=== PATIENT | male | born 1995 | race Caucasian/White ===

== ENCOUNTER 2023-01-15 11:34 | Inpatient (IN) | payer SELFPAY ==
--- NOTE | ~2023-01-15 | MR_ITS ---
EXAMINATION: MR ABDOMEN WITHOUT CONTRAST MR CHOLANGIOPANCREATOGRAPHY CLINICAL INFORMATION: Abnormally elevated liver enzymes, status post laparoscopic cholecystectomy COMPARISON: Ultrasound examination of abdomen on 01/15/2023 EXAMINATION: MRI of abdomen. MR cholangiopancreatography TECHNIQUE: Examination was performed in a high field strength MRI scanner. Multiplanar multisequence MR imaging of the abdomen was performed without IV contrast enhancement. MR cholangiopancreatography was performed with heavily T2 weighted sequences. 3-dimensional reconstruction of image data was performed. This was performed under concurrent direct supervision and monitoring by radiologist. Maximum intensity projection images were constructed. FINDINGS: MR CHOLANGIOPANCREATOGRAPHY: Gallbladder is surgically absent. Bilateral intra hepatic bile ducts, common hepatic duct and common bile duct are normal in size without filling defects. Pancreatic duct is normal in size. LIVER: The liver shows no focal lesion. The calculated hepatic fat percentage is 2.7%, compatible with normal. PANCREAS: No focal pancreatic lesion with abnormal signal can be seen. SPLEEN: Spleen is mildly enlarged, measuring 14.7 cm in AP length, without focal lesion. ADRENAL: Bilateral adrenal glands are normal in shape and size. KIDNEYS: Bilateral kidneys are normal in size without focal lesion. No abnormal fluid collection could be seen in the abdomen including the gallbladder fossa. MR/MR MRCP IMPRESSION: 1. Status post cholecystectomy. No evidence of choledocholithiasis. No abnormal fluid collection in the gallbladder fossa. 2. Mild splenomegaly.
--- NOTE | ~2023-01-15 | US_ITS ---
EXAMINATION: US ABDOMEN LIMITED CLINICAL INFORMATION: Right upper quadrant pain. COMPARISON: None available. TECHNIQUE: Real-time imaging of the right upper quadrant abdominal viscera. FINDINGS: PANCREAS: Tail obscured. LIVER: The liver is normal in size. The liver contour is normal. There is diffuse increased liver parenchymal echogenicity, consistent with hepatic steatosis. No focal hepatic lesion. There is no intrahepatic biliary duct dilatation seen. GALLBLADDER: The gallbladder is physiologically distended with gallstones and sludge. The gallbladder wall measures up to 4 mm. Positive sonographic Talamantes sign. COMMON BILE DUCT: Measures up to 0.6 cm in diameter. RIGHT KIDNEY: No hydronephrosis. No renal calculi or focal parenchymal lesions. The kidney measures 10.0 cm in maximum dimension. FREE FLUID: None. US/US abdomen limited IMPRESSION: Cholelithiasis with gallbladder wall thickening and positive sonographic Talamantes's sign. This likely represents acute cholecystitis. Advise clinical correlation and surgical consultation.
[2023-01-15 11:40] VITALS: BP 144/94; PULSE 72; RESP 18; TEMP 36.5; O2SAT 99; BMI 27.1
--- NOTE | 2023-01-15 11:45 | ED.ABDPAIN ---
HPI - Abdominal Pain General Chief Complaint: Abdominal Pain Stated Complaint: Abd pain, insomnia Time Seen by Provider: 01/15/23 14:09 Source: patient Mode of arrival: ambulatory Limitations: no limitations History of Present Illness HPI narrative: 27-year-old male with no significant past medical history presents emergency department for evaluation of 4-5 days of right upper quadrant pain. Patient states the pain is been constant, pain does radiate to his back. He states the pain is currently severe and is 10/10. He has had associated nausea and vomiting. He states he last ate vegetable soup last night but has had no appetite today. Related Data Allergies Allergy/AdvReac Type Severity Reaction Status Date / Time No Known Allergies Allergy Verified 01/15/23 11:40 Review of Systems Review of Systems Yes all other systems are reviewed and are negative [facility]LY [facility] Social History Social History Smoked in Last 30 Days: Yes Use of substances other than those prescribed or required for medical reasons: No Advance Directives: No Advance Directives Information Provided: No Physical Exam ED Vital Signs: Vital Signs - 24 hr 01/15/23 11:40 01/15/23 14:24 Temperature 97.7 F 98.3 F Pulse Rate 72 60 Respiratory Rate 18 18 Blood Pressure 144/94 H 150/96 H Pulse Oximetry 99 100 Oxygen Delivery Method Room Air Room Air BMI result Body Mass Index 27.1 Vital signs were normal except for an elevated blood pressure of 140 or 94 Exam: General: Awake, alert appears to be in moderate distress secondary to his abdominal pain Head: Normocephalic, atraumatic EENT: PERRL, Lids normal, sclera normal, conjunctiva normal, nose normal , ears normal, throat without erythema or exudates Neck: Supple, no adenopathy Lung: breath sounds symmetric, no wheezing, rales or rhonchi Chest: symmetric movement, nontender Heart: regular rate and rhythm, normal S1, S2 no murmurs or rubs Abdomen: Moderate to severe right upper quadrant tenderness with positive Talamantes sign,moderate epigastric tenderness, normoactive bowel sounds, no distension Back: no vertebral tenderness, no CVAT Neuro: Awake, alert, oriented, normal speech, moves all extremities symmetrically Course Course Course Narrative: This is an RME: Additional HPI, ROS, PE not included below will be deferred to primary provider. This is a 27-year-old male presenting to the emergency department with right upper quadrant pain x4 days. Pain has been keeping him awake at night. States that he has been vomiting, vomited 5 times last night. He is unable to keep anything down. Slight Scleral icterus on examination, with positive right upper quadrant pain. No fevers or chills. Vital signs stable. Plan: Labs, ultrasound right upper quadrant further ER evaluation needed. Medical Decision Making Medical Decision Making [facility] Narrative: 27-year-old male with no significant past medical history presents emergency department for evaluation of 4-5 days of right upper quadrant pain, with pain radiating to his back associated with nausea, vomiting or loss of appetite. Vital signs were unremarkable. Exam did reveal moderate to severe right upper quadrant tenderness with positive Talamantes sign. Following evaluation was ordered: CBC, BMP, lipase, abdominal ultrasound right upper quadrant Patient was treated with morphine 4 mg IV, lactated Ringer's x1 L and Zofran 4 mg IV 15:00 My interpretation patient's laboratory evaluation as follows: Elevated white blood count 93255. Elevated AST, ALT and alk-phos 42, 84 and 136 year. Elevated total bilirubin 2.0. Direct bilirubin was 0.7 Patient's right upper quadrant ultrasound revealed cholelithiasis with gallbladder wall thickening and positive sonographic Talamantes's sign. Patient's presentation, physical exam, laboratory evaluation ultrasound findings are consistent with acute cholecystitis I did order Zosyn 4.5 g IV I will discuss disposition with the covering surgeon 15:44 Patient was seen in the emergency department by Dr. Rea and he will admit the patient to his service. Patient was given a 2nd dose of morphine 4 mg IV. Differential Diagnosis Differential Diagnoses: The differential diagnosis associated with the presentation includes Differential diagnosis includes was not limited to cholecystitis, pancreatitis, appendicitis, gastritis, Admission/Observation Consideration of admission/observation: Escalation of care including admission/observation considered Consult Healthcare Provider Management of the patient was discussed with: Flight Agent On-call surgeon, Dr. Rea Lab Data [facility] Lab Attestation statement: I reviewed the patient's lab results. Please see [facility] above for discussion of labs 01/15/23 13:24 01/15/23 13:24 Labs: Lab Results 01/15/23 Range/Units 13:24 WBC 13.2 H (4.8-10.8) X10*3/uL RBC 5.70 (4.60-5.80) X10*6/uL Hgb 16.4 (14.0-18.0) g/dl Hct 47.4 (42.0-52.0) % MCV 83.2 (80.0-98.0) fL MCH 28.8 (27.0-33.0) pg MCHC 34.6 (31.0-36.0) g/dl RDW 12.3 (11.0-16.0) % Plt Count 310 (160-400) X10*3/uL MPV 9.3 L (9.4-12.4) fL Immature Gran % (Auto) 0.5 H (0.0-0.4) % Neut % (Auto) 76.7 H (45-73) % Lymph % (Auto) 15.6 L (20-40) % [place] % (Auto) 6.3 (2-11) % Eos % (Auto) 0.5 (0-4) % Baso % (Auto) 0.4 (0-2) % Lymph # (Auto) 2.1 (1.2-4.9) X10*3/uL [place] # (Auto) 0.8 (0.1-1.2) X10*3/uL Eos # (Auto) 0.1 (0.0-0.4) X10*3/uL Baso # (Auto) 0.1 (0.0-0.2) X10*3/uL Abs Immat Gran (auto) 0.06 H (0.00-0.03) X10*3/uL Absolute Neuts (auto) 10.2 H (2.0-8.3) x10*3/uL Absolute Nucleated RBC 0.000 (0.0-0.012) X10*3/uL Nucleated RBC % (auto) 0.0 (0.0-0.2) /100WBC Sodium 140 (135-145) mmol/L Potassium 4.3 (3.3-5.1) mmol/L Chloride 101 (96-108) mmol/L Carbon Dioxide 27 (22-29) mmol/L Anion Gap 16 (12-20) BUN 10 (9-16) mg/dL Creatinine 0.88 (0.5-1.4) mg/dL Estim Creat Clear Calc 135.9 Estimated GFR > 60 Random Glucose 110 (60-115) mg/dL Calcium 10.2 (8.4-10.2) mg/dL Total Bilirubin 2.0 H (0.0-1.0) mg/dL Direct Bilirubin 0.7 H (0.0-0.5) mg/dL AST 42 H (5-37) U/L ALT 84 H (0-40) U/L Alkaline Phosphatase 136 H (39-117) U/L Total Protein 8.6 H (6.5-8.0) g/dL Albumin 4.6 (3.5-5.0) g/dL Lipase 13 (8-78) U/L Radiology Impression Discussion of test interpretation with radiology: I have reviewed the radiologist's reading. Radiologist Impression: CLINICAL INFORMATION: Right upper quadrant pain. COMPARISON: None available. TECHNIQUE: Real-time imaging of the right upper quadrant abdominal viscera. FINDINGS: PANCREAS: Tail obscured. LIVER: The liver is normal in size. The liver contour is normal. There is diffuse increased liver parenchymal echogenicity, consistent with hepatic steatosis. No focal hepatic lesion. There is no intrahepatic biliary duct dilatation seen. GALLBLADDER: The gallbladder is physiologically distended with gallstones and sludge. The gallbladder wall measures up to 4 mm. Positive sonographic Talamantes sign. COMMON BILE DUCT: Measures up to 0.6 cm in diameter. RIGHT KIDNEY: No hydronephrosis. No renal calculi or focal parenchymal lesions. The kidney measures 10.0 cm in maximum dimension. FREE FLUID: None. US/US abdomen limited IMPRESSION: Cholelithiasis with gallbladder wall thickening and positive sonographic Talamantes's sign. This likely represents acute cholecystitis. Advise clinical correlation and surgical consultation. Dictated By: Oswaldo Wall MD Medications Administered Generic Name Dose Route Start Last Admin Trade Name Freq PRN Reason Stop Dose Admin Lactated Ringer's 1,000 mls @ 999 mls/hr 01/15/23 15:00 01/15/23 15:27 Lr IV 01/15/23 16:00 999 mls/hr .Q1H1M KIMANI Administration Discontinued Medications Generic Name Dose Route Start Last Admin Trade Name Freq PRN Reason Stop Dose Admin Piperacillin Sod/Tazobactam 100 mls @ 200 mls/hr 01/15/23 14:54 01/15/23 15:32 Sod 4.5 gm/ Sodium Chloride IV 01/15/23 15:23 200 mls/hr ONCE ONE Administration Morphine Sulfate 4 mg 01/15/23 14:54 01/15/23 15:21 Morphine Sulfate 4 Mg/Ml Cartridge IVPUSH 01/15/23 14:55 4 mg ONCE STA Administration Protocol Ondansetron HCl 4 mg 01/15/23 14:54 01/15/23 15:20 Ondansetron Hcl 4 Mg/2 Ml Vial IVPUSH 01/15/23 14:55 4 mg ONCE ONE Administration
[2023-01-15 13:29] LABS: MANUAL DIFF FLAG NO
[2023-01-15 13:34] LABS: Basophils Absolute Auto 0.1 X10*3/uL (0.0-0.2); Basophils Percent Auto 0.4 % (0-2); Eosinophils Absolute Auto 0.1 X10*3/uL (0.0-0.4); Eosinophils Percent Auto 0.5 % (0-4); Hematocrit 47.4 % (42.0-52.0); Hemoglobin 16.4 g/dl (14.0-18.0); Imm Gran Abs Auto 0.06 X10*3/uL (0.00-0.03); Imm Gran Pct Auto 0.5 % (0.0-0.4); Lymphocytes Absolute Auto 2.1 X10*3/uL (1.2-4.9); Lymphocytes Percent Auto 15.6 % (20-40); Mean Corpuscular HGB Conc 34.6 g/dl (31.0-36.0); Mean Corpuscular Hemoglobin 28.8 pg (27.0-33.0); Mean Corpuscular Volume 83.2 fL (80.0-98.0); Mean Platelet Volume 9.3 fL (9.4-12.4); Monocytes Absolute Auto 0.8 X10*3/uL (0.1-1.2); Monocytes Percent Auto 6.3 % (2-11); Neutrophils Absolute Auto 10.2 x10*3/uL (2.0-8.3); Neutrophils Percent Auto 76.7 % (45-73); Platelet Count 310 X10*3/uL (160-400); Red Cell Distribution Width 12.3 % (11.0-16.0); White Blood Count 13.2 X10*3/uL (4.8-10.8)
[2023-01-15 13:45] LABS: Alanine Aminotransferase 84 U/L (0-40); Albumin Level 4.6 g/dL (3.5-5.0); Alkaline Phosphatase 136 U/L (39-117); Anion Gap 16 (12-20); Aspartate Amino Transferase 42 U/L (5-37); Bilirubin Direct 0.7 mg/dL (0.0-0.5); Blood Urea Nitrogen 10 mg/dL (9-16); Calcium 10.2 mg/dL (8.4-10.2); Carbon Dioxide 27 mmol/L (22-29); Chloride 101 mmol/L (96-108); Creatinine Clr Calc Pharmacy 135.9; Estimated Glomerular Filt Rate > 60; Glucose Random 110 mg/dL (60-115); Lipase 13 U/L (8-78); Potassium 4.3 mmol/L (3.3-5.1); Sodium 140 mmol/L (135-145); Total Protein 8.6 g/dL (6.5-8.0)
[2023-01-15 14:24] VITALS: BP 150/96; PULSE 60; RESP 18; TEMP 36.8; O2SAT 100
--- NOTE | 2023-01-15 14:33 | PC.NURSE ---
pt aox4, ambulatory. reporting 10/10 RUQ pain radiating to flank and back that has been increasing for 4-5 days. awaiting ED provider and additional orders for labs
[2023-01-15] MEDS: ondansetron HCL 4 MG/2 ML VIAL IVPUSH (15:20)
[2023-01-15] MEDS: Morphine Sulfate 4 MG/ML CARTRIDGE IVPUSH ×2 (15:21→15:47)
[2023-01-15] MEDS: Lactated Ringers 1,000 ML 999 ML IV (15:27)
[2023-01-15] MEDS: Piperacillin Sodium/Tazobactam 4.5 GM in 0.9 % Sodium Chloride 100 ML IV (15:32)
--- NOTE | 2023-01-15 15:32 | PC.NURSE ---
medicated per mar, morphine and zofran given. LR infusing. Per , cultures not needed before abx infusion.
--- NOTE | 2023-01-15 15:58 | PM.HPGS ---
History of Present Illness History of Present Illness Date of Service: 01/15/23 Chief complaint: Abd pain, insomnia Narrative: Kevin Gonzalez is a 27 year old male presents with a 4-5 day history of progressively worsening right upper quadrant pain radiating around to his back. Because of progression of symptoms, he presents emergency department for the evaluation. Workup including sonogram and exam are consistent with acute cholecystitis. Chart was reviewed patient evaluated. White blood cell count 13 moderate elevation of LFTs PMFSH Social History Social History Smoked in Last 30 Days: Yes Use of substances other than those prescribed or required for medical reasons: No Advance Directives: No Advance Directives Information Provided: No Meds Allergies Allergy/AdvReac Type Severity Reaction Status Date / Time No Known Allergies Allergy Verified 01/15/23 11:40 Active Medications: Current Medications Acetaminophen (Acetaminophen 325 Mg Tablet) 650 mg PO Q6H PRN PRN Reason: Pain, Mild (Pain Scale 1-3) Al Hydroxide/Mg Hydroxide (Magnesium Hydrox/Alum Hydrox 30 Ml Oral.Susp) 30 ml PO Q4H PRN PRN Reason: Heartburn/Nausea Hydromorphone HCl (Hydromorphone Hcl 1 Mg/Ml Syringe) 0.5 mg IVPUSH Q4H PRN; Protocol PRN Reason: Pain, Severe (Pain Scale 7-10) Lactated Ringer's (Lr) 1,000 mls @ 999 mls/hr IV .Q1H1M KIMANI Stop: 01/15/23 16:00 Last Admin: 01/15/23 15:27 Dose: 999 mls/hr Piperacillin Sod/Tazobactam (Sod 3.375 gm/ Sodium Chloride) 50 mls @ 100 mls/hr IV Q8H [facility] Magnesium Hydroxide (Milk Of Magnesia 30 Ml Oral.Susp) 30 ml PO DAILY PRN PRN Reason: Constipation Ondansetron HCl (Ondansetron Hcl 4 Mg/2 Ml Vial) 4 mg IVPUSH Q8H PRN PRN Reason: Nausea and Vomiting Sodium Chloride (0.9 % Sodium Chloride Flush 3 Ml Syringe) 3 ml IVFLUSH QSHIFT [facility] Temazepam (Temazepam 15 Mg Capsule) 15 mg PO BEDTIME PRN PRN Reason: Insomnia Physical Exam Vital Signs: Vital Signs: Last Vital Signs Temp 98.3 F 01/15/23 14:24 Pulse 60 01/15/23 14:24 Resp 18 12/07/23 14:24 BP 150/96 H 01/15/23 14:24 Pulse Ox 100 01/15/23 14:24 O2 Del Method Room Air 01/15/23 14:24 BMI result Body Mass Index 27.1 Eyes: Other: Anicteric Chest: Other: Chest breath sounds bilaterally, HS 1 in 2 GI: Other: Abdomen moderately corpulent, marked right upper quadrant tenderness and positive Talamantes sign Results Results Labs: Short CBC 01/15/23 Range/Units 13:24 WBC 13.2 H (4.8-10.8) X10*3/uL Hgb 16.4 (14.0-18.0) g/dl Hct 47.4 (42.0-52.0) % Plt Count 310 (160-400) X10*3/uL BMP 01/15/23 13:24 Sodium 140 Potassium 4.3 Chloride 101 Carbon Dioxide 27 BUN 10 Creatinine 0.88 Calcium 10.2 Liver Function 01/15/23 Range/Units 13:24 Total Bilirubin 2.0 H (0.0-1.0) mg/dL Direct Bilirubin 0.7 H (0.0-0.5) mg/dL AST 42 H (5-37) U/L ALT 84 H (0-40) U/L Alkaline Phosphatase 136 H (39-117) U/L Albumin 4.6 (3.5-5.0) g/dL Assessment and Plan (1) Acute cholecystitis: Status: Acute Plan Risks, benefits, alternatives of laparoscopic possible open cholecystectomy possible cholangiogram were reviewed with the patient and his significant other was also present which included but not limited to bleeding, infection, recurrence of symptoms, numbness, pain, scarring, bowel or bile duct injury or leak and the patient wishes to proceed. All questions were answered. Patient will may added to the OR ?add on schedule For either late this evening or tomorrow. Quality Stroke Does the patient have a stroke diagnosis?: No VTE Prior VTE?: No VTE Risk Level:: Surgical - low VTE Device Contraindication: Treatment Not Indicated VTE Drug Contraindication: Treatment Not Indicated Procedures Date of Service Date of Service: 01/15/23
--- NOTE | 2023-01-15 16:14 | PHA.MEDREC ---
Pharmacy Consult ? Medication Reconciliation Pharmacy has completed the medication reconciliation. Patient reports taking romansh medications -Parol for pain and Lansor for his stomach. Parol is acetaminophen and lansor is lansopraozle. Florecita Hardin, PharmD
[2023-01-15] MEDS: 0.9 % Sodium Chloride Flush 3 ML SYRINGE IVFLUSH (17:05)
[2023-01-15] MEDS: HYDROmorphone HCl 1 MG/ML SYRINGE IVPUSH (17:05)
[2023-01-15 17:09] VITALS: BP 154/94; PULSE 71; RESP 16; O2SAT 97
[2023-01-15 18:02] VITALS: BP 169/96; PULSE 71; RESP 16; TEMP 36.7; O2SAT 96
[2023-01-15 18:19] VITALS: BMI 30.3
[2023-01-15] MEDS: Acetaminophen 325 MG TABLET 650 MG PO (19:04)
[2023-01-15] MEDS: Lactated Ringers 1,000 ML 100 ML IVCONT (19:05)
[2023-01-15 19:12] VITALS: BP 163/88; PULSE 76; RESP 18; TEMP 37; O2SAT 97
[2023-01-15] MEDS: HYDROmorphone HCl 1 MG/ML SYRINGE 0.5 MG IVPUSH (21:30)
[2023-01-15] MEDS: Piperacillin Sodium/Tazobactam 3.375 GM in 0.9 % Sodium Chloride 50 ML IV (21:32)
[2023-01-16] VITALS (14 sets, daily range): BP systolic 129–155; BP diastolic 63–100; PULSE 86–124; RESP 15–20; TEMP 36–37.4; O2SAT 93–96
[2023-01-16] MEDS: 0.9 % Sodium Chloride Flush 3 ML SYRINGE IVFLUSH ×3 (00:31→17:18)
[2023-01-16] MEDS: Morphine Sulfate 4 MG/ML CARTRIDGE IVPUSH ×4 (01:16→23:58)
--- NOTE | 2023-01-16 01:22 | PC.NURSE ---
0040- patient stating to have 8/10 abdominal pain, sharp and achy, however, Dilaudid not due yet. while speaking with patient he verbalized that the Morphine he received in the ED seemed to work better for him. Dr. Rea alerted via tiger text and message given with approval for new order of morphine sulf, 4mg ivp Q 4 hours prn severe pain. order entered and patient administered dose at 0120, will cont to monitor effect and pain management.
[2023-01-16] MEDS: Piperacillin Sodium/Tazobactam 3.375 GM in 0.9 % Sodium Chloride 50 ML IV ×4 (04:17→21:16)
[2023-01-16] MEDS: Lactated Ringers 1,000 ML 100 ML IVCONT ×2 (04:49→21:15)
--- NOTE | 2023-01-16 09:45 | MHC.CM.PN ---
CM met with patient at bedside. From home with partner, Kervin, and independent at baseline. No services or medical equipment. Patient does not have a PCP or insurance at this time, but Kervin is working on applying for [employer] today. CM provided education re: HCP, patient does not wish to complete at this time. DCP: home self care, private transport. CM will follow.
[2023-01-16] MEDS: HYDROmorphone HCl 1 MG/ML SYRINGE 0.5 MG IVPUSH (11:04)
[2023-01-16] MEDS: Lactated Ringers 1,000 ML 50 ML IVCONT (12:50)
--- NOTE | 2023-01-16 13:48 | P.CONAN_ITS ---
HPI - Anesthesia Eval Consult details Narrative: 27 yo M admitted with acute cholecystitis [facility] Active Problems Active Problems: All Active Problems (Updated 01/16/23 @ 12:46 by Meg Juarez RN) Acute cholecystitis (Acute) Past Medical History Medical History (Updated 01/16/23 @ 12:46 by Meg Juarez RN) No pertinent past medical history Family History Family history of problems with anesthesia: No Surgical History Surgical History (Updated 01/16/23 @ 12:46 by Meg Juarez RN) No pertinent past surgical history History of Problems with Anesthesia: No Social History Social History Household Members: Significant Other Housing: House Do you presently have visiting nurse or other home services: No Patient Tobacco Use Status: Current everyday Tobacco user Tobacco use type: Cigarette Cigarette Packs Per Day: 1 Cigarettes Per Day: 20.0 Smoked in Last 30 Days: Yes Patient Interested in Nicotine Replacement: No Patient Given Instructions on How to Stop Smoking: No Second Hand Smoke Exposure: No Use of substances other than those prescribed or required for medical reasons: No Currently Displaying Signs/Symptoms of Drug Intoxication Withdrawal: No Any prior treatment program specific to substance use: No Have you been hit, kicked, punched, or otherwise hurt by someone within the past year? If so, by whom?: No Do you feel safe in your current relationship?: Yes Is there a partner from a previous relationship who is making you feel unsafe now?: No Are you made to feel afraid or neglected: No Are you DNR?: No Advance Directives: No Advance Directives Information Provided: No Advance Directives on File: No Do you have thoughts of harming others: None Do you have a plan to hurt others: No Plan Recently lost weight without trying: No Eating poorly because of decreased appetite: No Nutrition Risks: No Nutritional Risk Poor oral hygiene: No service: No Meds Allergies Allergy/AdvReac Type Severity Reaction Status Date / Time No Known Allergies Allergy Verified 01/15/23 11:40 Active Medications: Current Medications Acetaminophen (Acetaminophen 325 Mg Tablet) 650 mg PO Q6H PRN PRN Reason: Pain, Mild (Pain Scale 1-3) Last Admin: 01/15/23 19:04 Dose: 650 mg Al Hydroxide/Mg Hydroxide (Magnesium Hydrox/Alum Hydrox 30 Ml Oral.Susp) 30 ml PO Q4H PRN PRN Reason: Heartburn/Nausea Fentanyl (Fentanyl Citrate/Pf 100 Mcg/2 Ml Vial) 50 mcg IVPUSH Q5M PRN; Protocol PRN Reason: Pain, Severe (Pain Scale 7-10) Hydromorphone HCl (Hydromorphone Hcl 1 Mg/Ml Syringe) 0.5 mg IVPUSH Q4H PRN; Protocol PRN Reason: Pain, Severe (Pain Scale 7-10) Last Admin: 01/16/23 11:04 Dose: 0.5 mg Hydromorphone HCl (Hydromorphone Hcl 0.5 Mg/0.5 Ml Syringe) 0.5 mg IVPUSH Q5M PRN; Protocol PRN Reason: Pain, Severe (Pain Scale 7-10) Piperacillin Sod/Tazobactam (Sod 3.375 gm/ Sodium Chloride) 50 mls @ 100 mls/hr IV Q6H [facility] Last Infusion: 01/16/23 10:15 Dose: Infused Lactated Ringer's (Lr) 1,000 mls @ 100 mls/hr IVCONT .Q10H [facility] Last Infusion: 01/16/23 12:54 Dose: 0 mls/hr Lactated Ringer's (Lr) 1,000 mls @ 50 mls/hr IVCONT .Q20H [facility] Last Admin: 01/16/23 12:50 Dose: 50 mls/hr Promethazine HCl 12.5 mg/ (Sodium Chloride) 50.5 mls @ 202 mls/hr IV ONCE PRN PRN Reason: Nausea and Vomiting Magnesium Hydroxide (Milk Of Magnesia 30 Ml Oral.Susp) 30 ml PO DAILY PRN PRN Reason: Constipation Morphine Sulfate (Morphine Sulfate 4 Mg/Ml Cartridge) 4 mg IVPUSH Q4H PRN; Protocol PRN Reason: Pain, Severe (Pain Scale 7-10) Last Admin: 01/16/23 11:59 Dose: 4 mg Ondansetron HCl (Ondansetron Hcl 4 Mg/2 Ml Vial) 4 mg IVPUSH Q8H PRN PRN Reason: Nausea and Vomiting Oxycodone HCl (Oxycodone Hcl Immed Release 5 Mg Tablet) 10 mg PO ONCE PRN PRN Reason: Pain, Severe (Pain Scale 7-10) Sodium Chloride (0.9 % Sodium Chloride Flush 3 Ml Syringe) 3 ml IVFLUSH QSHIFT [facility] Last Admin: 01/16/23 07:47 Dose: 3 ml Temazepam (Temazepam 15 Mg Capsule) 15 mg PO BEDTIME PRN PRN Reason: Insomnia Home Medications Medication Instructions Recorded Confirmed Last Taken Type acetaminophen 500 mg tablet 500 mg PO Q6H PRN Pain (Scale 01/15/23 01/15/23 Unknown History Score 1-3) lansoprazole 30 mg capsule,delayed 30 mg PO DAILY 01/15/23 01/15/23 Unknown History release Exam Exam Date and Time: January 16, 2023 134 Height,Weight and Vital Signs: Height 6 ft Weight 101.2 kg Last Vital Signs Temp 99.3 F 01/16/23 12:39 Pulse 95 01/16/23 12:39 Resp 15 01/16/23 12:39 BP 147/91 H 01/16/23 12:39 Pulse Ox 96 01/16/23 12:39 O2 Del Method Room Air 01/16/23 12:39 Pertinent Lab Results Pertinent Lab Results: Laboratory Tests 01/15/23 13:24 WBC 13.2 H RBC 5.70 Hgb 16.4 Hct 47.4 MCV 83.2 MCH 28.8 MCHC 34.6 RDW 12.3 Plt Count 310 MPV 9.3 L Immature Gran % (Auto) 0.5 H Neut % (Auto) 76.7 H Lymph % (Auto) 15.6 L [place] % (Auto) 6.3 Eos % (Auto) 0.5 Baso % (Auto) 0.4 Lymph # (Auto) 2.1 [place] # (Auto) 0.8 Eos # (Auto) 0.1 Baso # (Auto) 0.1 Abs Immat Gran (auto) 0.06 H Absolute Neuts (auto) 10.2 H Absolute Nucleated RBC 0.000 Nucleated RBC % (auto) 0.0 Sodium 140 Potassium 4.3 Chloride 101 Carbon Dioxide 27 Anion Gap 16 BUN 10 Creatinine 0.88 Estim Creat Clear Calc 135.9 Estimated GFR > 60 Random Glucose 110 Calcium 10.2 Total Bilirubin 2.0 H Direct Bilirubin 0.7 H AST 42 H ALT 84 H Alkaline Phosphatase 136 H Total Protein 8.6 H Albumin 4.6 Lipase 13 Airway Mallampati Class: II TM Dist: <=3cm Neck ROM: Full Loose/Missing/Broken Teeth: No Heart: S1S2 Lungs: CTAB Assessment and Plan Assessment Anesthesia Assessment: Anesthesia Plan Discussed and Chart Reviewed Final Anesthetic Review Family History of Problems with Anesthesia: No History of Problems with Anesthesia: No NPO: Yes ASA Class: II Final Preanesthetic Review: No Changes in Pt Med Stat, Meds/Allgs Chart Reviewed, Consent Obtained/Reviewed and Anes Risks/Benef Reviewed Patient Risk: Low Procedure Risk: Low Anesthetic Plan Anesthetic Plan: MAC: and Agree w/ Assess. and Plan Disposition: Standard PACU
--- NOTE | 2023-01-16 15:38 | P.OP_ITS ---
Operative Note Operative Note Date of Service: 01/16/23 Narrative: Preoperative diagnosis: [] Acute cholecystitis Postop diagnosis: [] Acute phlegmonous cholecystitis Procedure [] laparoscopic cholecystectomy Surgeon: [] Álvaro [employer] Supervisor: [] Maria Alejandra Type of Anesthesia: [] General Indication for surgery: [] Acute cholecystitis intraoperative findings demonstrated thickened phlegmonous inflamed appendix with dense omental adhesions to it. Moderately corpulent abdomen. Very intrahepatic gallbladder. Findings: [] Patient was taken to the operating room, placed on the operative table in supine position, after adequate level of general anesthesia was induced, the patient's abdomen was prepped and draped in usual sterile fashion. Using a supraumbilical curvilinear incision, Shore technique was used to insufflate the abdominal cavity to 15 mm of CO2. Upper midline and right subcostal ports were placed under direct laparoscopic view, the patient placed in reverse Trendelenburg position, and tilted to the left. Findings were as noted above phlegmonous swollen turgid gallbladder was initially decompressed with an aspirating device and then was grasped with laparoscopic graspers, and retracted superiorly and laterally. Omental adhesions were swept off the hilum and the cystic artery and cystic duct were each identified, circumferentially skeletonized,and critical view obtained. Cystic duct was moderately necrotic. Two clips were placed on the common bile duct side and 1 clip on the gallbladder side and transected. Cystic artery was similarly clipped proximally x2, distally x1 and transected. Markedly thickened intrahepatic gallbladder was cauterized from the gallbladder fossa using Bovie. Specimen placed in an Endo-Catch bag, and retrieved th rough the umbilical port. The abdominal cavity was copiously irrigated, and secured hemostasis. A Dex kson-Arnold drain was left in gallbladder fossa and exited through the right lateral port. This was secured to skin using 2-0 nylon. All ports were removed under direct laparoscopic view and wounds were closed in the following manner; umbilical wound has fascia reapproximated using interrupted 0 Vicryl sutures. Skin wounds were closed using subcuticular 4-0 Vicryl sutures followed by Steri-Strips and sterile dressings. Wounds were infiltrated 0.5% Marcaine at completion. Sponge, needle, and instrument counts reported correct. Patient tolerated the procedure well and emerged anesthesia stable condition. EBL minimal
[2023-01-17] MEDS: Piperacillin Sodium/Tazobactam 3.375 GM in 0.9 % Sodium Chloride 50 ML IV ×4 (03:31→21:34)
--- NOTE | 2023-01-17 07:05 | P.PNGS_ITS ---
Subjective Subjective Date of Service: 01/17/23 Patient reports: still having pain and tolerating liquids well Interval history: The patient is seen in coverage for Dr. Rea. Chart reviewed. Patient's cousin is at the bedside and he noted that it is okay to speak in front of her. Patient reports expected abdominal pain and is tolerating liquids. He reports some flatus. He denies any chest pain, difficulty breathing, shortness of breath and denies nausea or vomiting. Physical Exam 2 Vital Signs: Vital Signs: Last Vital Signs Temp 97.3 F 01/16/23 19:08 Pulse 89 01/16/23 19:08 Resp 16 01/16/23 19:08 BP 135/85 01/16/23 19:08 Pulse Ox 95 01/16/23 19:08 O2 Del Method Room Air 01/16/23 19:08 O2 Flow Rate 2.0 01/16/23 17:03 BMI result Body Mass Index 30.3 On exam, he is nontoxic He is having no difficulty breathing Abdomen has expected tenderness with clean, dry, intact dressings and bloody drainage in the CARLOTA. There is no obvious bile. Objective Data Active Medications Acetaminophen (Acetaminophen 325 Mg Tablet) 650 mg PO Q6H PRN PRN Reason: Pain, Mild (Pain Scale 1-3) Last Admin: 01/15/23 19:04 Dose: 650 mg Documented By: PORSCHE Al Hydroxide/Mg Hydroxide (Magnesium Hydrox/Alum Hydrox 30 Ml Oral.Susp) 30 ml PO Q4H PRN PRN Reason: Heartburn/Nausea Piperacillin Sod/Tazobactam (Sod 3.375 gm/ Sodium Chloride) 50 mls @ 100 mls/hr IV Q6H [facility] Last Infusion: 01/17/23 04:06 Dose: Infused Documented By: GALDINO Lactated Ringer's (Lr) 1,000 mls @ 100 mls/hr IVCONT .Q10H [facility] Last Admin: 01/16/23 21:15 Dose: 100 mls/hr Documented By: GALDINO Promethazine HCl 12.5 mg/ (Sodium Chloride) 50.5 mls @ 202 mls/hr IV ONCE PRN PRN Reason: Nausea and Vomiting Magnesium Hydroxide (Milk Of Magnesia 30 Ml Oral.Susp) 30 ml PO DAILY PRN PRN Reason: Constipation Morphine Sulfate (Morphine Sulfate 4 Mg/Ml Cartridge) 4 mg IVPUSH Q4H PRN; Protocol PRN Reason: Pain, Severe (Pain Scale 7-10) Last Admin: 01/16/23 23:58 Dose: 4 mg Documented By: GALDINO Ondansetron HCl (Ondansetron Hcl 4 Mg/2 Ml Vial) 4 mg IVPUSH Q8H PRN PRN Reason: Nausea and Vomiting Oxycodone HCl (Oxycodone Hcl Immed Release 5 Mg Tablet) 5 mg PO Q4H PRN PRN Reason: Pain, Moderate(Pain Scale 4-6) Sodium Chloride (0.9 % Sodium Chloride Flush 3 Ml Syringe) 3 ml IVFLUSH QSHIFT [facility] Last Admin: 01/16/23 21:23 Dose: Not Given Documented By: GALDINO Non-Admin Reason: IV Running Temazepam (Temazepam 15 Mg Capsule) 15 mg PO BEDTIME PRN PRN Reason: Insomnia Labs 01/15/23 13:24 01/15/23 13:24 Procedures Date of Service Date of Service: 01/17/23 Progress Note: A&P Assessment and plan (1) Acute cholecystitis: Status: Acute Plan Continue present care Will trend labs, physical exam and reassess tomorrow. Time Spent With Patient Time: Total time managing care of this patient today ____ minutes. Quality Stroke Does the patient have a stroke diagnosis?: No VTE Prior VTE?: No VTE Risk Level:: Surgical - low VTE Device Contraindication: Treatment Not Indicated VTE Drug Contraindication: Treatment Not Indicated
[2023-01-17 07:48] VITALS: BP 138/78; PULSE 78; RESP 20; TEMP 37; O2SAT 95
[2023-01-17] MEDS: Morphine Sulfate 4 MG/ML CARTRIDGE IVPUSH ×3 (08:52→23:21)
[2023-01-17] MEDS: Lactated Ringers 1,000 ML 100 ML IVCONT ×2 (08:53→18:41)
--- NOTE | 2023-01-17 11:39 | HO.POSTANES ---
Post Anesthesia Evaluation Post Anesthesia Evaluation Date of Service: 01/17/23 Vital Signs: Vital Signs Temp Pulse Resp BP Pulse Ox O2 Del Method 01/17/23 07:48 98.6 F 78 20 138/78 95 Room Air Anesthesia: General Endotracheal-GETA Mental Status: Awake Pain Control: Satisfactory Nausea/Vomiting: None Hydration: Adequate Anesthesia-Related Issues: No Anes. Related Issues
[2023-01-17 11:56] VITALS: BP 118/65; PULSE 85; RESP 20; TEMP 36.8; O2SAT 96
[2023-01-17 15:55] VITALS: BP 122/68; PULSE 82; RESP 18; TEMP 36.8; O2SAT 98
[2023-01-17 19:17] VITALS: BP 112/62; PULSE 92; RESP 20; TEMP 36.7; O2SAT 97
[2023-01-17] MEDS: 0.9 % Sodium Chloride Flush 3 ML SYRINGE IVFLUSH (21:34)
[2023-01-18] VITALS (7 sets, daily range): BP systolic 116–132; BP diastolic 72–82; PULSE 72–84; RESP 18; TEMP 36.1–37.1; O2SAT 94–97
[2023-01-18] MEDS: Piperacillin Sodium/Tazobactam 3.375 GM in 0.9 % Sodium Chloride 50 ML IV ×4 (03:45→22:27)
[2023-01-18 06:35] LABS: MANUAL DIFF FLAG NO
[2023-01-18 07:02] LABS: Basophils Absolute Auto 0.1 X10*3/uL (0.0-0.2); Basophils Percent Auto 0.5 % (0-2); Eosinophils Absolute Auto 0.1 X10*3/uL (0.0-0.4); Eosinophils Percent Auto 1.1 % (0-4); Hematocrit 40.6 % (42.0-52.0); Hemoglobin 13.2 g/dl (14.0-18.0); Imm Gran Abs Auto 0.03 X10*3/uL (0.00-0.03); Imm Gran Pct Auto 0.3 % (0.0-0.4); Lymphocytes Absolute Auto 3.3 X10*3/uL (1.2-4.9); Lymphocytes Percent Auto 33.1 % (20-40); Mean Corpuscular HGB Conc 32.5 g/dl (31.0-36.0); Mean Corpuscular Hemoglobin 28.6 pg (27.0-33.0); Mean Corpuscular Volume 88.1 fL (80.0-98.0); Monocytes Percent Auto 10.1 % (2-11); Neutrophils Absolute Auto 5.5 x10*3/uL (2.0-8.3); Neutrophils Percent Auto 54.9 % (45-73); Platelet Count 232 X10*3/uL (160-400); Red Blood Count 4.61 X10*6/uL (4.60-5.80); Red Cell Distribution Width 12.7 % (11.0-16.0)
[2023-01-18 07:17] LABS: Alanine Aminotransferase 278 U/L (0-40); Albumin Level 3.3 g/dL (3.5-5.0); Alkaline Phosphatase 195 U/L (39-117); Anion Gap 15 (12-20); Aspartate Amino Transferase 206 U/L (5-37); Bilirubin Total 1.4 mg/dL (0.0-1.0); Blood Urea Nitrogen 6 mg/dL (9-16); Calcium 8.8 mg/dL (8.4-10.2); Carbon Dioxide 27 mmol/L (22-29); Chloride 105 mmol/L (96-108); Creatinine Clr Calc Pharmacy 169.8; Estimated Glomerular Filt Rate > 60; Glucose Random 91 mg/dL (60-115); Potassium 3.9 mmol/L (3.3-5.1); Sodium 143 mmol/L (135-145); Total Protein 6.6 g/dL (6.5-8.0)
--- NOTE | 2023-01-18 07:23 | P.PNGS_ITS ---
Subjective Subjective Date of Service: 01/18/23 Patient reports: still having pain and tolerating liquids well Interval history: The patient is seen in coverage Patient's sister is at the bedside and he gave permission to speak in front of her. Patient notes continued pain in stated that it is like when he came to the emergency department. He is tolerate liquids but notes that the pain is fairly uncomfortable. He denies any nausea or vomiting in further denies chest pain, difficulty breathing or shortness of breath Physical Exam 2 Vital Signs: Vital Signs: Last Vital Signs Temp 97 F 01/18/23 03:31 Pulse 82 01/18/23 03:31 Resp 18 01/18/23 03:31 BP 132/80 01/18/23 03:31 Pulse Ox 94 01/18/23 03:31 O2 Del Method Room Air 01/18/23 03:31 O2 Flow Rate 2.0 01/16/23 17:03 BMI result Body Mass Index 30.3 On exam he is nontoxic He is anicteric He is having no respiratory distress Abdomen has expected tenderness and serosanguineous CARLOTA drainage is present Objective Data Active Medications Acetaminophen (Acetaminophen 325 Mg Tablet) 650 mg PO Q6H PRN PRN Reason: Pain, Mild (Pain Scale 1-3) Last Admin: 01/15/23 19:04 Dose: 650 mg Documented By: PORSCHE Al Hydroxide/Mg Hydroxide (Magnesium Hydrox/Alum Hydrox 30 Ml Oral.Susp) 30 ml PO Q4H PRN PRN Reason: Heartburn/Nausea Piperacillin Sod/Tazobactam (Sod 3.375 gm/ Sodium Chloride) 50 mls @ 100 mls/hr IV Q6H [facility] Last Infusion: 01/18/23 04:19 Dose: Infused Documented By: GALDINO Promethazine HCl 12.5 mg/ (Sodium Chloride) 50.5 mls @ 202 mls/hr IV ONCE PRN PRN Reason: Nausea and Vomiting Magnesium Hydroxide (Milk Of Magnesia 30 Ml Oral.Susp) 30 ml PO DAILY PRN PRN Reason: Constipation Morphine Sulfate (Morphine Sulfate 4 Mg/Ml Cartridge) 4 mg IVPUSH Q4H PRN; Protocol PRN Reason: Pain, Severe (Pain Scale 7-10) Last Admin: 01/17/23 23:21 Dose: 4 mg Documented By: GALDINO Ondansetron HCl (Ondansetron Hcl 4 Mg/2 Ml Vial) 4 mg IVPUSH Q8H PRN PRN Reason: Nausea and Vomiting Oxycodone HCl (Oxycodone Hcl Immed Release 5 Mg Tablet) 5 mg PO Q4H PRN PRN Reason: Pain, Moderate(Pain Scale 4-6) Sodium Chloride (0.9 % Sodium Chloride Flush 3 Ml Syringe) 3 ml IVFLUSH QSHIFT [facility] Last Admin: 01/17/23 21:34 Dose: 3 ml Documented By: GALDINO Temazepam (Temazepam 15 Mg Capsule) 15 mg PO BEDTIME PRN PRN Reason: Insomnia Labs 01/18/23 05:52 01/18/23 05:52 Labs: Laboratory Results - last 24 hr 01/18/23 05:52 MCV 88.1 MCH 28.6 MCHC 32.5 RDW 12.7 Plt Count 232 D MPV 10.0 Immature Gran % (Auto) 0.3 Neut % (Auto) 54.9 Lymph % (Auto) 33.1 [place] % (Auto) 10.1 Eos % (Auto) 1.1 Baso % (Auto) 0.5 Lymph # (Auto) 3.3 [place] # (Auto) 1.0 Eos # (Auto) 0.1 Baso # (Auto) 0.1 Abs Immat Gran (auto) 0.03 Absolute Neuts (auto) 5.5 Absolute Nucleated RBC 0.000 Nucleated RBC % (auto) 0.0 Anion Gap 15 Estim Creat Clear Calc 169.8 Estimated GFR > 60 Random Glucose 91 Calcium 8.8 D Total Bilirubin 1.4 H AST 206 H ALT 278 H Alkaline Phosphatase 195 H Total Protein 6.6 Albumin 3.3 L Procedures Date of Service Date of Service: 01/18/23 Progress Note: A&P Assessment and plan (1) Acute cholecystitis: Status: Acute (2) Elevated LFTs: Status: Acute Plan I reviewed options with the patient including discharge home and follow-up as an outpatient with Dr. Rea tomorrow given that the LFTs are likely elevated due to cautery, but he noted that his pain was increasing as at presentation which is suggestive of possible choledocholithiasis. Given this, I will order repeat labs for tomorrow and schedule an MRCP. If the LFTs are trending down, the MRCP can be canceled and the patient can be discharged. The other option of outpatient follow-up was discussed with the patient and his sister, and declined. Dr. Rea will resume care tomorrow, 01/19 Time Spent With Patient Time: Total time managing care of this patient today ____ minutes. Quality Stroke Does the patient have a stroke diagnosis?: No VTE Prior VTE?: No VTE Risk Level:: Surgical - low VTE Device Contraindication: Treatment Not Indicated VTE Drug Contraindication: Treatment Not Indicated
[2023-01-18] MEDS: Morphine Sulfate 4 MG/ML CARTRIDGE IVPUSH ×3 (07:44→22:27)
[2023-01-18] MEDS: 0.9 % Sodium Chloride Flush 3 ML SYRINGE IVFLUSH ×2 (15:15→22:27)
[2023-01-19 03:55] VITALS: BP 128/86; PULSE 76; RESP 18; TEMP 36.6; O2SAT 96
[2023-01-19] MEDS: Piperacillin Sodium/Tazobactam 3.375 GM in 0.9 % Sodium Chloride 50 ML IV ×4 (04:16→21:50)
[2023-01-19] MEDS: Morphine Sulfate 4 MG/ML CARTRIDGE IVPUSH ×3 (04:21→13:28)
[2023-01-19 06:10] LABS: MANUAL DIFF FLAG NO
[2023-01-19 06:22] LABS: Basophils Absolute Auto 0.1 X10*3/uL (0.0-0.2); Basophils Percent Auto 0.8 % (0-2); Eosinophils Absolute Auto 0.4 X10*3/uL (0.0-0.4); Eosinophils Percent Auto 4.5 % (0-4); Hematocrit 42.8 % (42.0-52.0); Hemoglobin 14.3 g/dl (14.0-18.0); Imm Gran Abs Auto 0.04 X10*3/uL (0.00-0.03); Imm Gran Pct Auto 0.4 % (0.0-0.4); Lymphocytes Absolute Auto 3.3 X10*3/uL (1.2-4.9); Lymphocytes Percent Auto 34.5 % (20-40); Mean Corpuscular HGB Conc 33.4 g/dl (31.0-36.0); Mean Corpuscular Hemoglobin 29.1 pg (27.0-33.0); Mean Platelet Volume 9.4 fL (9.4-12.4); Monocytes Absolute Auto 0.9 X10*3/uL (0.1-1.2); Monocytes Percent Auto 9.8 % (2-11); Neutrophils Absolute Auto 4.7 x10*3/uL (2.0-8.3); Platelet Count 275 X10*3/uL (160-400); Red Blood Count 4.92 X10*6/uL (4.60-5.80); Red Cell Distribution Width 12.5 % (11.0-16.0); White Blood Count 9.5 X10*3/uL (4.8-10.8)
[2023-01-19 06:27] LABS: Alanine Aminotransferase 328 U/L (0-40); Albumin Level 3.6 g/dL (3.5-5.0); Alkaline Phosphatase 293 U/L (39-117); Anion Gap 13 (12-20); Aspartate Amino Transferase 193 U/L (5-37); Bilirubin Total 1.9 mg/dL (0.0-1.0); Blood Urea Nitrogen 5 mg/dL (9-16); Calcium 9.4 mg/dL (8.4-10.2); Carbon Dioxide 28 mmol/L (22-29); Chloride 105 mmol/L (96-108); Creatinine Clr Calc Pharmacy 152.4; Estimated Glomerular Filt Rate > 60; Glucose Random 92 mg/dL (60-115); Potassium 3.9 mmol/L (3.3-5.1); Sodium 142 mmol/L (135-145); Total Protein 7.1 g/dL (6.5-8.0)
[2023-01-19 07:44] LABS: Glucose, Whole Blood 100 mg/dL (60-115)
[2023-01-19 07:51] VITALS: BP 131/86; PULSE 80; RESP 16; TEMP 36.7; O2SAT 94
[2023-01-19] MEDS: 0.9 % Sodium Chloride Flush 3 ML SYRINGE IVFLUSH ×3 (09:11→21:51)
--- NOTE | 2023-01-19 10:41 | P.PNGS_ITS ---
Subjective Subjective Date of Service: 01/19/23 Interval history: Patient evaluated with a cousin in room. Incisional discomfort improving. Overall feeling better. Tolerating diet. LFT still elevated. Physical Exam 2 Vital Signs: Vital Signs: Last Vital Signs Temp 98.1 F 01/19/23 07:51 Pulse 80 01/19/23 07:51 Resp 16 01/19/23 07:51 BP 131/86 01/19/23 07:51 Pulse Ox 94 01/19/23 07:51 O2 Del Method Room Air 01/19/23 07:51 O2 Flow Rate 2.0 01/16/23 17:03 BMI result Body Mass Index 30.3 GI: Other: Abdomen soft. All wounds clean dry and intact. CARLOTA drain scant serous output. Objective Data Active Medications Acetaminophen (Acetaminophen 325 Mg Tablet) 650 mg PO Q6H PRN PRN Reason: Pain, Mild (Pain Scale 1-3) Last Admin: 01/15/23 19:04 Dose: 650 mg Documented By: PORSCHE Al Hydroxide/Mg Hydroxide (Magnesium Hydrox/Alum Hydrox 30 Ml Oral.Susp) 30 ml PO Q4H PRN PRN Reason: Heartburn/Nausea Piperacillin Sod/Tazobactam (Sod 3.375 gm/ Sodium Chloride) 50 mls @ 100 mls/hr IV Q6H [facility] Last Infusion: 01/19/23 09:51 Dose: Infused Documented By: FRED Promethazine HCl 12.5 mg/ (Sodium Chloride) 50.5 mls @ 202 mls/hr IV ONCE PRN PRN Reason: Nausea and Vomiting Magnesium Hydroxide (Milk Of Magnesia 30 Ml Oral.Susp) 30 ml PO DAILY PRN PRN Reason: Constipation Morphine Sulfate (Morphine Sulfate 4 Mg/Ml Cartridge) 4 mg IVPUSH Q4H PRN; Protocol PRN Reason: Pain, Severe (Pain Scale 7-10) Last Admin: 01/19/23 09:10 Dose: 4 mg Documented By: FRED Ondansetron HCl (Ondansetron Hcl 4 Mg/2 Ml Vial) 4 mg IVPUSH Q8H PRN PRN Reason: Nausea and Vomiting Oxycodone HCl (Oxycodone Hcl Immed Release 5 Mg Tablet) 5 mg PO Q4H PRN PRN Reason: Pain, Moderate(Pain Scale 4-6) Sodium Chloride (0.9 % Sodium Chloride Flush 3 Ml Syringe) 3 ml IVFLUSH QSHIFT [facility] Last Admin: 01/19/23 09:11 Dose: 3 ml Documented By: FRED Temazepam (Temazepam 15 Mg Capsule) 15 mg PO BEDTIME PRN PRN Reason: Insomnia Labs 01/19/23 06:05 01/19/23 06:05 Labs: Laboratory Results - last 24 hr 01/19/23 01/19/23 06:05 07:24 MCV 87.0 MCH 29.1 MCHC 33.4 RDW 12.5 Plt Count 275 MPV 9.4 Immature Gran % (Auto) 0.4 Neut % (Auto) 50.0 Lymph % (Auto) 34.5 [place] % (Auto) 9.8 Eos % (Auto) 4.5 H Baso % (Auto) 0.8 Lymph # (Auto) 3.3 [place] # (Auto) 0.9 Eos # (Auto) 0.4 Baso # (Auto) 0.1 Abs Immat Gran (auto) 0.04 H Absolute Neuts (auto) 4.7 Absolute Nucleated RBC 0.000 Nucleated RBC % (auto) 0.0 Anion Gap 13 Estim Creat Clear Calc 152.4 Estimated GFR > 60 POC Glucose 100 Random Glucose 92 Calcium 9.4 D Total Bilirubin 1.9 H AST 193 H ALT 328 H Alkaline Phosphatase 293 H Total Protein 7.1 Albumin 3.6 Procedures Date of Service Date of Service: 01/19/23 Progress Note: A&P Assessment and plan (1) Acute cholecystitis: Status: Acute (2) Elevated LFTs: Status: Acute Plan Patient scheduled for MRCP to evaluate for choledocholithiasis. Depending on these results, further interventions with ERCP or DC drained/ DC home may occur. Time Spent With Patient Time: Total time managing care of this patient today ____ minutes. Quality Stroke Does the patient have a stroke diagnosis?: No VTE Prior VTE?: No VTE Risk Level:: Surgical - low VTE Device Contraindication: Treatment Not Indicated VTE Drug Contraindication: Treatment Not Indicated
--- NOTE | 2023-01-19 12:17 | MHC.CM.PN ---
EMR REVIEWED. PER MD NOTE PT NOT MEDICALLY CLEARED FOR DC. MRCP TO BE SCHEDULED. CM WILL CONTINUE TO FOLLOW.
[2023-01-19] MEDS: Docusate Sodium 100 MG CAPSULE PO (14:02)
[2023-01-19 15:07] VITALS: BP 123/79; PULSE 81; RESP 18; TEMP 36.7; O2SAT 96
[2023-01-19] MEDS: oxyCODONE HCl Immed Release 5 MG TABLET PO ×2 (16:20→22:30)
[2023-01-19 19:51] VITALS: BP 136/78; PULSE 84; RESP 18; TEMP 36.8; O2SAT 96
[2023-01-20] VITALS: BP 129/85; PULSE 74; RESP 16; TEMP 36.8; O2SAT 96
[2023-01-20 04:00] VITALS: BP 129/87; PULSE 76; RESP 16; TEMP 36.9; O2SAT 95
[2023-01-20] MEDS: Piperacillin Sodium/Tazobactam 3.375 GM in 0.9 % Sodium Chloride 50 ML IV ×2 (04:00→09:31)
[2023-01-20 07:21] VITALS: BP 123/82; PULSE 77; RESP 16; TEMP 36.6; O2SAT 96
--- NOTE | 2023-01-20 07:49 | PM.PNGS ---
Subjective Subjective Date of Service: 01/20/23 Interval history: C/o pain at drain site. Tolerating solid diet. Denies nausea. Passing flatus but no BM in 4-5 days. Wants to go home. Physical Exam Vital Signs: Vital Signs: Last Vital Signs Temp 97.8 F 01/20/23 07:21 Pulse 77 01/20/23 07:21 Resp 16 01/20/23 07:21 BP 123/82 01/20/23 07:21 Pulse Ox 96 01/20/23 07:21 O2 Del Method Room Air 01/20/23 07:21 O2 Flow Rate 2.0 01/16/23 17:03 BMI result Body Mass Index 30.3 Const: General: comfortable, no acute distress and alert Orientation/consciousness: patient oriented x3 Resp: Effort & Inspection: normal respiratory effort GI: Other: CARLOTA drain with old blood Inspection: Yes incision (clean, umbilical incision with mild ecchymosis) Palpation (GI): Soft to palpation, Tenderness to palpation present (GI) (mild at drain site), no guarding and not rigid Skin: General skin exam: no rashes or lesions noted and no jaundice Neuro: General: patient oriented x3 and moves all extremities Objective Data Active Medications Acetaminophen (Acetaminophen 325 Mg Tablet) 650 mg PO Q6H PRN PRN Reason: Pain, Mild (Pain Scale 1-3) Last Admin: 01/15/23 19:04 Dose: 650 mg Documented By: PORSCHE Al Hydroxide/Mg Hydroxide (Magnesium Hydrox/Alum Hydrox 30 Ml Oral.Susp) 30 ml PO Q4H PRN PRN Reason: Heartburn/Nausea Docusate Sodium (Docusate Sodium 100 Mg Capsule) 100 mg PO BID PRN PRN Reason: Constipation Last Admin: 01/19/23 14:02 Dose: 100 mg Documented By: FRED Piperacillin Sod/Tazobactam (Sod 3.375 gm/ Sodium Chloride) 50 mls @ 100 mls/hr IV Q6H [facility] Last Infusion: 01/20/23 04:30 Dose: Infused Documented By: KAY Promethazine HCl 12.5 mg/ (Sodium Chloride) 50.5 mls @ 202 mls/hr IV ONCE PRN PRN Reason: Nausea and Vomiting Magnesium Hydroxide (Milk Of Magnesia 30 Ml Oral.Susp) 30 ml PO DAILY PRN PRN Reason: Constipation Morphine Sulfate (Morphine Sulfate 4 Mg/Ml Cartridge) 4 mg IVPUSH Q4H PRN; Protocol PRN Reason: Pain, Severe (Pain Scale 7-10) Last Admin: 01/19/23 13:28 Dose: 4 mg Documented By: FRED Ondansetron HCl (Ondansetron Hcl 4 Mg/2 Ml Vial) 4 mg IVPUSH Q8H PRN PRN Reason: Nausea and Vomiting Oxycodone HCl (Oxycodone Hcl Immed Release 5 Mg Tablet) 5 mg PO Q4H PRN PRN Reason: Pain, Moderate(Pain Scale 4-6) Last Admin: 01/19/23 22:30 Dose: 5 mg Documented By: KAY Sodium Chloride (0.9 % Sodium Chloride Flush 3 Ml Syringe) 3 ml IVFLUSH [facility] Last Admin: 01/19/23 21:51 Dose: 3 ml Documented By: KAY Temazepam (Temazepam 15 Mg Capsule) 15 mg PO BEDTIME PRN PRN Reason: Insomnia Labs 01/19/23 06:05 01/19/23 06:05 Procedures Date of Service Date of Service: 01/20/23 Progress Note: A&P Assessment and plan (1) Elevated LFTs: Status: Acute (2) Acute cholecystitis: Status: Acute Plan Bili slightly up this morning but MRCP negative for CBD stone yesterday. Stable for dc to home today. Dc on bowel regimen. CARLOTA drain removed. F/u in office in 1 week, repeat LFTs prior. Patient and comfortable with plan. Time Spent With Patient Time: Total time managing care of this patient today ____ minutes. Quality Stroke Does the patient have a stroke diagnosis?: No VTE Prior VTE?: No VTE Risk Level:: Surgical - low VTE Device Contraindication: Treatment Not Indicated VTE Drug Contraindication: Treatment Not Indicated
--- NOTE | 2023-01-20 09:01 | MHC.CM.PN ---
EMR REVIEWED. PATIENT MEDICALLY CLEARED FOR DC. PRIVATE TRANSPORT HOME AT 11AM. RN AWARE.
[2023-01-20 09:17] LABS: Alanine Aminotransferase 291 U/L (0-40); Albumin Level 3.6 g/dL (3.5-5.0); Alkaline Phosphatase 281 U/L (39-117); Aspartate Amino Transferase 109 U/L (5-37); Bilirubin Direct 0.5 mg/dL (0.0-0.5); Bilirubin Total 1.3 mg/dL (0.0-1.0); Total Protein 7.2 g/dL (6.5-8.0)
[2023-01-20] MEDS: 0.9 % Sodium Chloride Flush 3 ML SYRINGE IVFLUSH (09:32)
[2023-01-20] MEDS: oxyCODONE HCl Immed Release 5 MG TABLET PO (09:36)
--- NOTE | 2023-01-20 13:23 | PM.DS ---
DS: Providers Provider Date of Service: 01/20/23 Date of admission: 01/15/23 15:54 Date of discharge: 01/20/23 Primary care physician: Jay Physician Attending physician on admission: Myles Rea Attending physician on discharge: Myles Rea DS: Diagnosis Discharge Diagnosis (1) Elevated LFTs: Status: Acute (2) Acute cholecystitis: Status: Acute DS: Summary Hospital Course Hospital Course: HPI AT ADMISSION: Kevin Gonzalez is a 27 year old male presents with a 4-5 day history of progressively worsening right upper quadrant pain radiating around to his back. Because of progression of symptoms, he presents emergency department for the evaluation. Workup including sonogram and exam are consistent with acute cholecystitis. Chart was reviewed patient evaluated. White blood cell count 13 moderate elevation of LFTs. HOSPITAL COURSE: He was admitted to the surgical service for further treatment of the acute cholecystitis. It was recommended to proceed with laparoscopic cholecystectomy. He agreed and was added onto the OR schedule for that day. On 01/16/23, a laparoscopic cholecystectomy was performed by Dr. Rea without immediate complication. Intraoperative findings demonstrated thickened phlegmonous inflamed gallbladder with dense omental adhesions. He tolerated the procedure well. He however had persistent severe RUQ pain post operatively with mild elevation in bilirubin. Therefore MRCP was obtained. This was negative for CBD stone. His LFTs mildly improved the next day and he felt better. He was tolerating solid diet with adequate pain control. He was ambulating. His abdomen was benign with clean incisions and scant CARLOTA drainage. The CARLOTA drain was removed. He was discharged to home on 01/20/23 in stable condition. He is to follow up in the office in 1 week and repeat LFTs prior. He was discharged on colace 100mg PO BID for bowel regimen as he had not had a BM in 4-5 days however was passing flatus. Status at Discharge Functional status at discharge: independent ambulation Overall status at discharge: patient is progressing back to baseline Time Attestation Discharge coordination time: Less than 30 minutes Quality: Safe Use of Opioids Does Pt have an Active Cancer Diagnosis on the Problem List?: No Quality: Stroke Does the patient have a stroke diagnosis?: No Physical Exam Vital Signs: Vital Signs: Last Vital Signs Temp 97.8 F 01/20/23 07:21 Pulse 77 01/20/23 07:21 Resp 16 01/20/23 07:21 BP 123/82 01/20/23 07:21 Pulse Ox 96 01/20/23 07:21 O2 Del Method Room Air 01/20/23 07:21 O2 Flow Rate 2.0 01/16/23 17:03 BMI result Body Mass Index 30.3 Const: General: comfortable, no acute distress and well developed Orientation/consciousness: patient oriented x3 Resp: Effort & Inspection: normal respiratory effort GI: Inspection: No distended and Yes incision (clean) Palpation (GI): Soft to palpation, Tenderness to palpation present (GI) and no guarding Skin: General skin exam: no rashes or lesions noted and no jaundice Neuro: General: patient oriented x3 DS: Data Data Completed and Pending Pending studies at discharge: Pending at discharge 01/16/23 15:16 Surgical [PTH] Routine Labs on day of discharge: Laboratory Results - last 24 hr 01/20/23 08:35 Hold Purple Top SEE NOTE Total Bilirubin 1.3 H Direct Bilirubin 0.5 AST 109 H ALT 291 H Alkaline Phosphatase 281 H Total Protein 7.2 Albumin 3.6 Discharge Plan Discharge Anticipated Discharge Date/Time: 01/20/23 07:47 Patient Disposition: Home, Self-Care Discharge Diagnosis: Acute phlegmonous cholecystitis Referrals: Physician,None [Primary Care Provider] - 1 Week Myles Rea MD [Physician] - 1 Week Discharge Medications: New hydrocodone-acetaminophen 5-325 mg tablet 1 tab PO Q4-6H PRN (Reason: pain) Qty: 30 0RF Rx Instructions: Partial Fill upon patient request. docusate sodium [Colace] 100 mg capsule 100 mg PO BID Qty: 30 0RF Continued acetaminophen 500 mg Tablet 500 mg PO Q6H PRN (Reason: Pain (Scale Score 1-3)) lansoprazole 30 mg Capsule,Delayed Release(Dr/Ec) 30 mg PO DAILY Discharge Orders: Discharge Order (Routine); Ordered 01/20/23 Ordered By: Terrie Man Diet: Advance to usual diet Activity on Discharge: No heavy lifting Stand Alone Forms: Patient Portal Discharge page Other Ambulatory Orders: Liver Panel (Routine) Timeframe: 1 Week Facility: [facility] - Location: Laboratory Ordered By: Terrie Man Activity Restrictions/Additional Instructions: Apply an ice pack for short intervals (20 minutes on, followed by at least 20 minutes off) for the first 2 days. Do not apply heat. Do not use creams, lotions, or topical antibiotics. These can cause infection or allergic reaction. Ok to shower after your surgery. You have steri strips (small white cloth strips) covering your incision- these will fall off ~1 week. Follow up in office with Dr. Rea in 1 week. ([phone]) No heavy lifting (>10lbs) or strenuous activity! Call Your Doctor If: -Your temperature exceeds 101.5? F -You experience excessive pain or swelling -You have an unexpected reaction to medication -You have excessive bleeding -You experience continued vomiting/nausea -Your incision begins to separate -Your incision shows signs of infection such as increased redness, swelling, excessive pain, drainage (light blood or clear fluid is normal) or heat Care Plan Goals: Return to baseline health and resume normal activities following recovery period. Health Concerns: acute cholecystitis, gangrenous elevated LFTs Plan of Treatment: f/u in office in 1 week repeat LFTs 1 week Assessment: Doing well post op Discharge Date/Time: 01/20/23 10:56
== END 2023-01-20 10:56 | disposition home or self-care (01) | DRG 419 ==
LOC: HO.ED 15:46 → HO.EDOVER 16:10 → HO.S3 17:04
PROVIDERS: Physician Assistant Medical; Surgery; Admitting Provider Surgery; Emergency Provider Emergency Medicine Emergency Medical Services; Visit Provider Surgery
PROC: 0FT44ZZ Resection of Gallbladder, Percutaneous Endoscopic Approach (ICD-10-PCS; CPT 47562; principal; 2023-01-16 13:00)
DX: K81.0 Acute cholecystitis (principal); F17.210 Nicotine dependence, cigarettes, uncomplicated; Z71.6 Tobacco abuse counseling; G89.18 Other acute postprocedural pain; Z79.899 Other long term (current) drug therapy
CPT/HCPCS: 36415; 74181; 76705; 80048; 80053; 80076; 82947; 83690; 85025; 88304; 99024; 99285; J0131; J1100; J1170; J1805; J1885; J2250; J2270; J2405; J2543; J2704; J2795; J3010; J7120

== ENCOUNTER → 2023-01-15 14:41 | Outpatient (BNV) | payer SELFPAY | PROVIDERS: Emergency Provider Emergency Medicine Emergency Medical Services; Visit Provider Surgery | DX: K81.0 Acute cholecystitis (principal); R74.01 Elevation of levels of liver transaminase levels | CPT/HCPCS: 47562; 99024; 99222 ==